=== PATIENT | male | born 1950 | race Caucasian/White ===

== ENCOUNTER 2021-10-21 10:29 | Emergency (ER) | payer OTHER, MEDICARE ==
[2021-10-21] MEDS ORDERED: BEBTELOVIMAB (EUA) 175 MG/2 ML VIAL IVPUSH ONE (10:31)
[2021-10-21 10:43] VITALS: BMI 21.2
[2021-10-21 12:57] VITALS: BP 132/95; PULSE 77; RESP 20; TEMP 98.4
== END 2021-10-21 13:04 | disposition home or self-care (01) ==
LOC: JCOVINFU 10:29
DX: U07.1 COVID-19 (principal)
CPT/HCPCS: 99283-25; M0222; Q0222